=== PATIENT | male | born 1955 | race Caucasian/White ===

== ENCOUNTER → 2017-02-09 | Outpatient (CLI) | payer MEDICAID ==
[2017-02-09 14:20] LABS: ABSOLUTE BASOPHILS # (AUTO) 0.1 10^3/uL (0.0-0.2); ABSOLUTE EOSINOPHILS # (AUTO) 0.2 10^3/uL (0.0-0.6); ABSOLUTE LYMPHOCYTES (AUTO) 1.4 10^3/uL (0.5-4.7); ABSOLUTE MONOCYTES (AUTO) 1.2 10^3/uL (0.1-1.4); ABSOLUTE NEUT (AUTO) 7.8 10^3/uL (1.7-8.2); BASOPHILS % (AUTO) 0.5 % (0-2); EOSINOPHILS % (AUTO) 2.2 % (0-6); HEMATOCRIT 33.5 % (37.9-51.0); HEMOGLOBIN 11.4 g/dL (13.5-17.0); HGB HCT DIFFERENCE 0.7; LYMPHOCYTES % (AUTO) 13.1 % (13-45); MEAN CORPUSCULAR HEMOGLOBIN 28.6 pg (27.0-33.4); MEAN CORPUSCULAR HGB CONC 34.1 g/dL (32.0-36.0); MEAN CORPUSCULAR VOLUME 84 fl (80-97); MONOCYTES % (AUTO) 11.1 % (3-13); RED BLOOD COUNT 3.99 10^6/uL (4.35-5.55); SEGMENTED NEUTROPHILS % (AUTO) 73.1 % (42-78); WHITE BLOOD COUNT 10.7 10^3/uL (4.0-10.5)
[2017-02-09 14:29] LABS: APPEARANCE,URINE SLIGHTLY-CLOUDY; BILIRUBIN,URINE NEGATIVE (NEGATIVE); GLUCOSE, URINE NEGATIVE (NEGATIVE); KETONES,URINE NEGATIVE (NEGATIVE); LEUKOCYTE ESTERASE,URINE NEGATIVE (NEGATIVE); NITRITE,URINE NEGATIVE (NEGATIVE); PROTEIN,URINE NEGATIVE (NEGATIVE); URINE SPECIFIC GRAVITY 1.008; UROBILINOGEN,URINE NEGATIVE mg/dL (<2.0)
[2017-02-09 14:49] LABS: ALANINE AMINOTRANSFERASE 90 U/L (21-72); ALBUMIN 3.9 g/dL (3.5-5.0); ALKALINE PHOSPHATASE 289 U/L (38-126); ANION GAP 16 (5-19); ASPARTATE AMINO TRANSFERASE 60 U/L (17-59); BILIRUBIN,DIRECT 0.3 mg/dL (0.0-0.4); BILIRUBIN,TOTAL 0.6 mg/dL (0.2-1.3); BLOOD UREA NITROGEN 14 mg/dL (7-20); CALCIUM 9.3 mg/dL (8.4-10.2); CARBON DIOXIDE 24 mmol/L (22-30); CHLORIDE 96 mmol/L (98-107); CREATININE RESULT 0.46 mg/dL (0.52-1.25); GLUCOSE 96 mg/dL (75-110); SODIUM 135.7 mmol/L (137-145); TOTAL PROTEIN 7.1 g/dL (6.3-8.2)
== END ==
LOC: OD 12:40
PROVIDERS: ATTEND Physician Assistant
DX: F20.9 Schizophrenia, unspecified (principal); R10.9 Unspecified abdominal pain; R25.1 Tremor, unspecified; Z79.899 Other long term (current) drug therapy
CPT/HCPCS: 36415; 80053; 81001; 84443; 85025

== ENCOUNTER 2017-03-14 08:38 | Emergency (ER) | payer MEDICARE, MEDICAID ==
[2017-03-14] MEDS ORDERED: NORMAL SALINE 1000 ML 1,000 ML IV ONE (09:55)
[2017-03-14 10:44] LABS: VENOUS BLOOD HCO3 28.3 mmol/L (20-32); VENOUS BLOOD PCO2 41.2 mmHg (35-63); VENOUS BLOOD PH 7.46 (7.30-7.42)
[2017-03-14 10:59] LABS: ALANINE AMINOTRANSFERASE 50 U/L (21-72); ALBUMIN 2.9 g/dL (3.5-5.0); ALKALINE PHOSPHATASE 373 U/L (38-126); ANION GAP 12 (5-19); ASPARTATE AMINO TRANSFERASE 52 U/L (17-59); BILIRUBIN,DIRECT 13.3 mg/dL (0.0-0.4); BILIRUBIN,TOTAL 15.4 mg/dL (0.2-1.3); BLOOD UREA NITROGEN 17 mg/dL (7-20); CALCIUM 8.9 mg/dL (8.4-10.2); CARBON DIOXIDE 26 mmol/L (22-30); CHLORIDE 96 mmol/L (98-107); CREATININE RESULT 0.76 mg/dL (0.52-1.25); GLUCOSE 97 mg/dL (75-110); POTASSIUM 3.8 mmol/L (3.6-5.0); SODIUM 134.2 mmol/L (137-145); TOTAL PROTEIN 6.2 g/dL (6.3-8.2)
[2017-03-14 11:00] LABS: CREATINE KINASE < 20 U/L (55-170)
[2017-03-14 11:02] LABS: HEMATOCRIT 33.1 % (37.9-51.0); HEMOGLOBIN 11.1 g/dL (13.5-17.0); HGB HCT DIFFERENCE 0.2; MEAN CORPUSCULAR HEMOGLOBIN 28.4 pg (27.0-33.4); MEAN CORPUSCULAR HGB CONC 33.7 g/dL (32.0-36.0); MEAN CORPUSCULAR VOLUME 84 fl (80-97); RED BLOOD COUNT 3.93 10^6/uL (4.35-5.55); RED CELL DISTRIBUTION WIDTH 18.4 % (11.5-14.0); WHITE BLOOD COUNT 12.4 10^3/uL (4.0-10.5)
[2017-03-14 11:03] LABS: PROTHROMBIN TIME 15.1 SEC (11.4-15.4)
[2017-03-14 11:04] LABS: PARTIAL THROMBOPLASTIN TIME 28.8 SEC (23.5-35.8)
[2017-03-14 11:05] LABS: BAND NEUTROPHILS % (MANUAL) 4 % (3-5); BASOPHILS % (MANUAL) 1 % (0-2); EOSINOPHILS % (MANUAL) 5 % (0-6); LYMPHOCYTES % (MANUAL) 9 % (13-45); TOTAL CELLS COUNTED 100
[2017-03-14 11:07] LABS: ANISOCYTOSIS 1+; HYPOCHROMASIA 1+; POIKILOCYTOSIS SLIGHT; TARGET CELLS SLIGHT
[2017-03-14 11:12] LABS: CREATINE KINASE MB < 0.22 ng/mL (<4.55); TROPONIN I < 0.012 ng/mL
[2017-03-14] MEDS ORDERED: MORPHINE SULFATE 10 MG/ML INJ IV ONE (11:33)
[2017-03-14] MEDS ORDERED: ONDANSETRON HCL INJ/PF 4 MG/2 ML SDV IV ONE (11:33)
[2017-03-14] MEDS: NORMAL SALINE 1000 ML 1,000 ML IV PRN ×2 (11:41→11:53)
[2017-03-14 12:14] LABS: APPEARANCE,URINE SLIGHTLY-CLOUDY; BILIRUBIN,URINE MODERATE (NEGATIVE); GLUCOSE, URINE NEGATIVE (NEGATIVE); KETONES,URINE NEGATIVE (NEGATIVE); LEUKOCYTE ESTERASE,URINE NEGATIVE (NEGATIVE); NITRITE,URINE NEGATIVE (NEGATIVE); PROTEIN,URINE NEGATIVE (NEGATIVE)
[2017-03-14] MEDS ORDERED: ENOXAPARIN SODIUM INJ 60 MG/0.6 ML DISP.SYRIN SUBCUT SCH (15:15)
--- NOTE | 2017-03-14 15:51 | ER Document Report ---
ED General - General TRAVEL OUTSIDE OF THE [place] IN LAST 30 DAYS: No - HPI Patient complains to provider of: generalized weakness <ARUNA DOE - Last Filed: 03/14/17 15:45> <JENNIFER TERRY - Last Filed: 03/14/17 22:11> - General Chief Complaint: General Weakness Stated Complaint: WEAKNESS - HPI Notes: Patient's coming in for evaluation of generalized weakness. Family states patient was recently diagnosed with pancreatic cancer with tumor within the pancreatic head. [facility] Patient has now seeing local oncology Dr. paul. Patient is currently on oral chemotherapy Xelox Gemcitabine +Abraxane Playing room patient was mildly hypoxic with a SPO2 of approximately 86 patient was placed on 2 L nasal cannula. According to family members patient does not usually require oxygen. Also patient is very jaundice. According to family members patient has been jaundiced since learning of the diagnoses of pain. Cancer. States patient was somnolent day prior to arrival. Patient does have a history of also schizophrenia. States composite medication. Patient is currently on Lovenox to avoid any pulmonary embolism. Family's concern that patient is dehydrated. Denies fevers chills nausea vomiting diarrhea productive cough (ARUNA DOE) - Related Data Allergies/Adverse Reactions: No Known Allergies Allergy (Verified 03/14/17 08:43) Past Medical History - Social History Smoking Status: Former Smoker Frequency of alcohol use: None Drug Abuse: None Family History: Reviewed & Not Pertinent Patient has suicidal ideation: No Patient has homicidal ideation: No Pulmonary Medical History: Reports: Hx COPD Renal/ Medical History: Denies: Hx Peritoneal Dialysis Surgical Hx: Negative - Immunizations Hx Diphtheria, Pertussis, Tetanus Vaccination: Yes <ARUNA DOE - Last Filed: 03/14/17 15:45> Review of Systems - Review of Systems Constitutional: Weakness EENT: No symptoms reported Cardiovascular: No symptoms reported Respiratory: No symptoms reported Gastrointestinal: No symptoms reported Genitourinary: No symptoms reported Male Genitourinary: No symptoms reported Musculoskeletal: No symptoms reported Skin: No symptoms reported Hematologic/Lymphatic: No symptoms reported Neurological/Psychological: No symptoms reported <ARUNA DOE - Last Filed: 03/14/17 15:45> Physical Exam - Vital signs Interpretation: Normal - General General appearance: Appears well, Alert - HEENT Head: Normocephalic, Atraumatic Eyes: Normal Conjunctiva: Icteric Pupils: PERRL - Respiratory Respiratory status: No respiratory distress Chest status: Nontender Breath sounds: Normal Chest palpation: Normal - Cardiovascular Rhythm: Regular Heart sounds: Normal auscultation Murmur: No - Abdominal Inspection: Normal Distension: No distension Bowel sounds: Normal Tenderness: Nontender Organomegaly: No organomegaly - Back Back: Normal, Nontender - Extremities General upper extremity: Normal inspection, Nontender, Normal color, Normal ROM , Normal temperature General lower extremity: Normal inspection, Nontender, Normal color, Normal ROM , Normal temperature, Normal weight bearing. No: Nazanin's sign - Neurological Neuro grossly intact: Yes Cognition: Normal Orientation: AAOx4 [place] Coma Scale Eye Opening: Spontaneous [place] Coma Scale Verbal: Oriented [place] Coma Scale Motor: Obeys Commands [place] Coma Scale Total: 15 Speech: Normal Motor strength normal: LUE, RUE, LLE, RLE Sensory: Normal - Psychological Associated symptoms: Normal affect, Normal mood - Skin Skin Temperature: Warm Skin Moisture: Dry Skin Color: Jaundiced <ARUNA DOE - Last Filed: 03/14/17 15:45> Course - Laboratory Result Diagrams: 03/14/17 10:15 03/14/17 10:15 <ARUNA DOE - Last Filed: 03/14/17 15:45> - Laboratory Result Diagrams: 03/14/17 10:15 03/14/17 10:15 <JENNIFER TERRY N - Last Filed: 03/14/17 22:11> - Re-evaluation Re-evalutation: 03/14/17 15:52 Patient's ultrasound findings a showed a slight elevation in white count no signs of neutropenia. No bandemia no left shift. Patient character pathology hasn't no elevation lactic acid patient does have elevation in his bilirubin. Patient's chest x-ray shows patchy airspace disease because of the hypoxia patient underwent a CTA of the chest and also the abdomen. This did show again on edema patchy airspace disease more likely related to pulmonary embolism. Patient does have some biliary ductal dilatation. [facility] on-call Dr. Mcnair states that the bilirubins are elevated from discharge at discharge and [facility] bilirubins approximate 7 bilirubin is now more than doubled recommended more likely transfer back to [facility] for further evaluation by GI specialty. I did discuss this with the ER physician agree to said the patient in transfer. At this time and no fever no cough I did with patchy airspace disease more likely related to underlying pulmonary embolus. Patient was given 2 L of fluid here I will give the patient weight- based dose of Lovenox. I did contact patient's local oncologist agree to transfer. Patient was transferred to [facility] (ARUNA DOE) - Vital Signs Vital signs: Temp Pulse Resp BP Pulse Ox 98.1 F 79 15 133/95 H 96 03/14/17 19:23 03/14/17 11:49 03/14/17 19:23 03/14/17 19:23 03/14/17 19:23 03/14/17 22:08 Transport is here to transport patient to [facility]. Patient reassessed. He is awake , juandiced, somewhat ill-appearing with vital signs that have been stable, O2 sats low90's on 2L NC. He is resting comfortably and stable for transport at this time. (JENNIFER TERRY) - Laboratory Laboratory results interpreted by me: 03/14/17 03/14/17 03/14/17 10:15 10:15 10:15 WBC 12.4 H RBC 3.93 L Hgb 11.1 L Hct 33.1 L RDW 18.4 H Lymphocytes % (Manual) 9 L Abs Neuts (Manual) 9.7 H VBG pH Sodium 134.2 L Chloride 96 L Total Bilirubin 15.4 H Direct Bilirubin 13.3 H Alkaline Phosphatase 373 H Ammonia < 8.7 L Creatine Kinase < 20 L Total Protein 6.2 L Albumin 2.9 L Urine Bilirubin Urine Urobilinogen 03/14/17 03/14/17 10:15 11:50 WBC RBC Hgb Hct RDW Lymphocytes % (Manual) Abs Neuts (Manual) VBG pH 7.46 H Sodium Chloride Total Bilirubin Direct Bilirubin Alkaline Phosphatase Ammonia Creatine Kinase Total Protein Albumin Urine Bilirubin MODERATE H Urine Urobilinogen 4.0 H Discharge <ARUNA DOE - Last Filed: 03/14/17 15:45> <JENNIFER TERRY - Last Filed: 03/14/17 22:11> - Discharge Clinical Impression: Biliary obstruction Pulmonary embolism Qualifiers: Pulmonary embolism type: other Chronicity: unspecified Acute cor pulmonale presence: without acute cor pulmonale Qualified Code(s): I26.99 - Other pulmonary embolism without acute cor pulmonale Pancreatic cancer Qualifiers: Pancreatic malignancy location: unspecified Qualified Code(s): C25.9 - Malignant neoplasm of pancreas, unspecified Disposition: [facility] Referrals: PEPE NEWMAN PA-C [Primary Care Provider] - Follow up as needed
[2017-03-14] MEDS ORDERED: ASPIRIN 81 MG TABLET, CHEWABLE PO ONE (16:51)
[2017-03-14 22:21] VITALS: BP 123/92
--- NOTE | 2017-03-15 10:17 | EKG REPORT ---
SEVERITY:- ABNORMAL ECG - SINUS RHYTHM ATRIAL PREMATURE COMPLEX PROBABLE LEFT ATRIAL ABNORMALITY LAD, CONSIDER LEFT ANTERIOR FASCICULAR BLOCK NONSPECIFIC T ABNORMALITIES, ANTERIOR LEADS BORDERLINE PROLONGED QT INTERVAL : Confirmed by: Lisseth Arteaga 15-Mar-2017 10:16:38
== END 2017-03-14 22:10 | disposition short-term general hospital (02) ==
LOC: ER 08:38
DX: K83.1 Obstruction of bile duct (principal); I26.99 Other pulmonary embolism without acute cor pulmonale; C25.9 Malignant neoplasm of pancreas, unspecified; F20.9 Schizophrenia, unspecified; R53.1 Weakness; Z87.891 Personal history of nicotine dependence
CPT/HCPCS: 93005; 99285; 96372; 96361; 96374; 96375; 36415; 82553; 82140; 82550; 85025; 85610; 85730; 80053; 81001; 84484; 82803; 83605; 71010; 71275; 74174; 93010; A9270; J2270; J2405; J7030; J1650